=== PATIENT | female | born 1965 | race African-American/Black ===

== ENCOUNTER 2023-12-27 19:25 | Emergency (ER) | payer BC, OTHER ==
[~2023-12-27] VITALS: Ht 167.6 cm; Wt 99.2 kg
[2023-12-27 21:01] LABS: Urine Bacteria NONE SEEN /hpf (None Seen); Urine Blood Negative /uL (Negative); Urine Clarity Clear (Clear); Urine Color Yellow (Yellow); Urine Protein, UAD Negative (Negative); Urine Specific Gravity 1.044 (1.001-1.035); Urine Urobilinogen Normal (Negative); Urine WBC 2 /hpf (0 - 5); Urine pH 5.5 (5.0-8.0)
[2023-12-27 21:44] VITALS: BP 150/86; PULSE 86; RESP 18; TEMP 98.8; O2SAT 100
== END 2023-12-27 21:46 | disposition home or self-care (01) ==
LOC: ER 19:25
DX: B34.9 Viral infection, unspecified (principal); I10 Essential (primary) hypertension; E11.9 Type 2 diabetes mellitus without complications; Z98.890 Other specified postprocedural states
CPT/HCPCS: 81001